=== PATIENT | male | born 1950 | race Caucasian/White ===

== ENCOUNTER 2019-06-02 16:53 | Emergency (ER) | payer OTHER, MEDICARE ==
[~2019-06-02] VITALS: Ht 175.3 cm; Wt 86.2 kg
[2019-06-02] MEDS ORDERED: Crutch1 EACH MISC (17:19)
[2019-06-02] MEDS ORDERED: HYDR1TAB94 PO (17:22)
[2019-06-02] MEDS ORDERED: HYDCHL25 PO (17:38)
[2019-06-02] MEDS ORDERED: LOSA50 PO (17:38)
== END 2019-06-02 17:36 | disposition home or self-care (01) ==
LOC: ER 16:53
DX: S80.01XA Contusion of right knee, initial encounter (principal); Z91.041 Radiographic dye allergy status; Z88.1 Allergy status to other antibiotic agents; W22.8XXA Striking against or struck by other objects, initial encounter
CPT/HCPCS: 29505; 73564; 99283-25; A9270-GY